=== PATIENT | male | born 1985 | race Caucasian/White ===

== ENCOUNTER 2018-03-31 12:21 | Day surgery (SDC) | payer OTHER ==
[~2018-03-31 12:21] MED LIST: LACTATED RINGERS 1,000 ML IV ONE
[2018-03-31] MEDS ORDERED: fentaNYL 250 MCG/5 ML VIAL IVP ONE (13:33)
[2018-03-31] MEDS ORDERED: MIDAZOLAM 2 MG/2 ML VIAL IVP ONE (13:33)
[2018-03-31 15:02] VITALS: BP 108/70
== END 2018-03-31 12:22 | disposition home or self-care (01) ==
LOC: SDS 12:21
PROVIDERS: ATTEND Surgery
PROC: 0DJD8ZZ Inspection of Lower Intestinal Tract, Via Natural or Artificial Opening Endoscopic (ICD-10-PCS; principal; 2018-03-31 13:30)
DX: K64.8 Other hemorrhoids (principal); Z87.891 Personal history of nicotine dependence
CPT/HCPCS: 45378; J3010; J7120